=== PATIENT | male | born 1940 | race Two or more races ===

== ENCOUNTER 2021-09-30 10:53 | Emergency (ER) | payer OTHER ==
[~2021-09-30] VITALS: Ht 167.6 cm; Wt 63.5 kg
[~2021-09-30 10:53] MED LIST: METFORMIN HCL500 MG PO; METOPROLOL SUCC25 MG PO; PRINIVIL5 MG PO; SIMVASTATIN5 MG PO
[2021-09-30] MEDS ORDERED: ATORVASTATIN CA40 MG PO (11:58)
[2021-09-30] MEDS ORDERED: JANUMET 50-5001 EACH PO (11:59)
[2021-09-30] MEDS ORDERED: JANUMET 50-1,01 EACH PO (11:59)
== END 2021-09-30 16:12 | disposition home or self-care (01) ==
LOC: ER 10:53
DX: M19.09 Primary osteoarthritis, other specified site (principal); R53.81 Other malaise; R06.2 Wheezing; E11.40 Type 2 diabetes mellitus with diabetic neuropathy, unspecified; Z79.899 Other long term (current) drug therapy; I10 Essential (primary) hypertension